=== PATIENT | female | born 1975 | race Caucasian/White ===

== ENCOUNTER 2023-05-14 14:00 | Inpatient (IN) | payer MEDICAID ==
[~2023-05-14] VITALS: Ht 167.6 cm; Wt 70.0 kg
[2023-05-14] MEDS ORDERED: ondansetron/PF 4mg/2ml inj IV ONE (15:00)
[2023-05-14] MEDS ORDERED: pantoprazole 40 MG vial IV ONE (15:00)
[2023-05-14] MEDS ORDERED: normal saline 1000ML IV soln IVB ONE (15:00)
[2023-05-14] MEDS ORDERED: acetaminophen 325mg tablet PO ONE (15:10)
[2023-05-14 15:54] LABS: HEMOGLOBIN 11.7 g/dl (12.0-16.0); RED CELL DISTRIBUTION WIDTH 12.8 % (11.5-14.5)
[2023-05-14 15:55] LABS: HEMATOCRIT 35.1 % (35.0-45.0); MEAN CORPUSCULAR HGB CONC 33.4 g/dL (33.0-36.5); MEAN CORPUSCULAR VOLUME 95.8 FL (78-98); MEAN PLATELET VOLUME 7.7 FL (7.4-10.4); PLATELET COUNT 285 X10'3 (140-440); RED BLOOD COUNT 3.66 X10'6 (4.20-5.60); WHITE BLOOD COUNT 19.5 X10'3 (4.5-11.0)
[2023-05-14 16:01] LABS: ALBUMIN 2.3 G/DL (3.4-5.0); ANION GAP 9 (8-16); BILIRUBIN,TOTAL 0.4 MG/DL (0.1-1.0); BLOOD UREA NITROGEN 7 MG/DL (7-18); BUN/CREATININE RATIO 8.4 (10.0-20.0); CALCIUM 8.3 MG/DL (8.5-10.1); CHLORIDE 99 MMOL/L (99-107); CREATININE 0.83 MG/DL (0.40-0.90); GLUCOSE 107 MG/DL (70-104); SODIUM 132 MMOL/L (135-145); TOTAL CARBON DIOXIDE 24.1 MMOL/L (24-32); eCRCL 79 ML/MIN; eGFR 74 ML/MIN
[2023-05-14 16:02] LABS: ALANINE AMINOTRANSFERASE 30 U/L (12-78); ALBUMIN/GLOBULIN RATIO 0.5 (1.1-1.5); ALKALINE PHOSPHATASE 89 IU/L (46-116); ASPARTATE AMINO TRANSFERASE 31 U/L (10-37)
[2023-05-14] MEDS ORDERED: CefTRIAXone/D5W-Rocephin 1gm 50 ML IV ONE ×2 (16:05→21:05)
[2023-05-14] MEDS ORDERED: azithromycin/NS 500mg/250ml 250 ML IV ONE (16:05)
[2023-05-14] MEDS ORDERED: magnesium Cl slow-release 64mg tablet PO PRN (16:20)
[2023-05-14] MEDS ORDERED: mag hydrox/Alum hydrox/simeth 30ml oral suspension PO PRN (16:20)
[2023-05-14] MEDS ORDERED: potassium Cl 40MEQ/1/2NS 520ml 520 ML IV PRN (16:20)
[2023-05-14] MEDS ORDERED: magnesium 4gm in 100ml NS 100 ML IV PRN (16:20)
[2023-05-14] MEDS ORDERED: potassium Cl 20 mEq SR tablet PO PRN (16:20)
[2023-05-14] MEDS ORDERED: ondansetron 4mg rapidly disintigrating tab PO PRN (16:20)
[2023-05-14] MEDS ORDERED: ondansetron/PF 4mg/2ml inj IV PRN (16:20)
[2023-05-14] MEDS ORDERED: HYDROcodone/acetaminophen 5mg/325mg tablet PO PRN (16:20)
[2023-05-14] MEDS ORDERED: magnesium hydroxide 30ml (MOM) UD suspension PO PRN (16:20)
[2023-05-14] MEDS ORDERED: acetaminophen 650mg rectal suppository RC PRN (16:20)
[2023-05-14] MEDS ORDERED: magnesium 2GM in 50ml NS 50 ML IV PRN (16:20)
[2023-05-14] MEDS ORDERED: acetaminophen 325mg tablet PO PRN ×2 (16:20)
[2023-05-14] MEDS ORDERED: bisacodyl 10mg suppository rectal RC PRN (16:20)
[2023-05-14 16:21] LABS: BILIRUBIN,URINE NEGATIVE (Neg); CLARITY,URINE SLIGHTLY CLOUDY (Clear); COLOR,URINE YELLOW (Yellow); GLUCOSE, URINE NEGATIVE (Neg); KETONES,URINE NEGATIVE (Neg); LEUKOCYTE ESTERASE ,URINE NEGATIVE (Neg); NITRITES, URINE NEGATIVE (Neg); OCCULT BLOOD,URINE TRACE-INTACT (Neg); PROTEIN,URINE NEGATIVE (Neg); UROBILINOGEN,URINE 0.2 E.U/dL (0.2-1.0)
[2023-05-14 16:38] LABS: UA COLLECTION TYPE NON-SPECIFIED
[2023-05-14 16:41] LABS: SQUAMOUS EPITHELIAL CELL,UR MANY /LPF (FEW)
[2023-05-14 16:42] LABS: MUCUS STRANDS FEW /LPF (Neg)
[2023-05-14 16:43] LABS: BACTERIA,URINE 1+ /HPF (Neg)
[2023-05-14 16:45] LABS: WBC,URINE 0-4 /HPF (0-4)
[2023-05-14 16:46] LABS: TRICHOMONAS,URINE MOD /HPF (NEGATIVE)
[2023-05-14] MEDS ORDERED: iohexol 300mg/ml 100ml inj. ONE ×2 (16:47→20:51)
[2023-05-14 17:00] LABS: PLATELET ESTIMATE NORMAL; STOMATOCYTES 1+; TOTAL CELLS COUNTED 100
[2023-05-14] MEDS: normal saline 1000ml 1,000 ML IV SCH ×2 (17:05→23:12)
[2023-05-14] MEDS ORDERED: morphine 2 MG/ML inj. syringe IV PRN (17:10)
[2023-05-14] MEDS: HYDROcodone/acetaminophen 10/325mg tab PO PRN ×2 (17:24→23:11)
[2023-05-14] MEDS ORDERED: ketorolac tromethamine 15mg/ml inj. IV PRN (18:50)
[2023-05-14] MEDS: albuterol 2.5 MG/3 ML nebule NEB SCH ×2 (20:50→23:11)
[2023-05-14 20:53] VITALS: PULSE 122; PULSE 22; O2SAT 97
[2023-05-14 21:07] LABS: ABG BASE EXCESS 0.1 mmol/L (-2.0-2.0); ABG HCO3 23.1 mmol/L (22.0-26.0); ABG OXYGEN SATURATION 94.9 % (94-97); ABG PCO2 (T) 32.9 mmHg (32.0-45.0); ABG PH (T) 7.466 (7.350-7.450); ABG PO2 (T) 71.5 mmHg (75.0-100.0); ALLEN'S TEST POSITIVE; FCOHb 0.2 % (0.0-3.9); FHHb 5.1 % (0.0-5.0); FMetHb 0.1 % (0.0-1.5); FO2Hb 94.6 % (94-97); PATIENT TEMPERATURE 37.2; TOTAL HEMOGLOBIN 12.5 G/dl (12.0-16.0)
[2023-05-14 21:09] VITALS: PULSE 110; RESP 20
[2023-05-14] MEDS: docusate sod 100mg capsule PO SCH (21:24)
[2023-05-14] MEDS: K and/or MAG REPLACEMENT MC SCH (21:25)
[2023-05-14] MEDS: enoxaparin 40mg/0.4ml syringe SQ SCH (21:25)
[2023-05-14 22:22] VITALS: BP 112/69; PULSE 115; RESP 16; TEMP 100.7; O2SAT 96
[2023-05-14 23:13] VITALS: PULSE 112; RESP 22; O2SAT 98
[2023-05-14 23:17] VITALS: PULSE 101; RESP 20
[2023-05-15] VITALS (17 sets, daily range): BP systolic 125–163; BP diastolic 71–98; PULSE 101–115; RESP 18–28; TEMP 98.1–99.2; O2SAT 90–99
[2023-05-15] MEDS: albuterol 2.5 MG/3 ML nebule NEB SCH ×6 (02:46→23:15)
[2023-05-15] MEDS: HYDROcodone/acetaminophen 10/325mg tab PO PRN ×4 (05:20→19:26)
[2023-05-15] MEDS ORDERED: NO HOME MEDS (05:29)
[2023-05-15] MEDS: CefTRIAXone 2gm/D5W 50ml BAG 50 ML IV SCH (07:45)
[2023-05-15 07:50] LABS: BASOPHILS % (AUTO) 0.2 % (0-1); EOSINOPHILS % (AUTO) 0.2 % (0-6); HEMATOCRIT 32.5 % (35.0-45.0); HEMOGLOBIN 10.8 g/dl (12.0-16.0); LYMPHOCYTES # (AUTO) 1.3 X10'3 (1.1-4.8); LYMPHOCYTES % (AUTO) 6.2 % (21-51); MEAN CORPUSCULAR HEMOGLOBIN 32.2 PG (27.0-31.0); MEAN CORPUSCULAR HGB CONC 33.2 g/dL (33.0-36.5); MONOCYTES # (AUTO) 1.3 X10'3 (0-0.9); MONOCYTES % (AUTO) 6.2 % (2-12); NEUTROPHILS % (AUTO) 87.2 % (42-75); PLATELET COUNT 276 X10'3 (140-440); RED BLOOD COUNT 3.35 X10'6 (4.20-5.60); RED CELL DISTRIBUTION WIDTH 13.2 % (11.5-14.5); WHITE BLOOD COUNT 20.7 X10'3 (4.5-11.0)
[2023-05-15 07:54] LABS: ALANINE AMINOTRANSFERASE 23 U/L (12-78); ALBUMIN 1.9 G/DL (3.4-5.0); ALBUMIN/GLOBULIN RATIO 0.4 (1.1-1.5); ALKALINE PHOSPHATASE 102 IU/L (46-116); ANION GAP 13 (8-16); ASPARTATE AMINO TRANSFERASE 17 U/L (10-37); BILIRUBIN,TOTAL 0.2 MG/DL (0.1-1.0); BLOOD UREA NITROGEN 7 MG/DL (7-18); BUN/CREATININE RATIO 7.6 (10.0-20.0); CHLORIDE 101 MMOL/L (99-107); CREATININE 0.92 MG/DL (0.40-0.90); GLUCOSE 113 MG/DL (70-104); MAGNESIUM 1.6 MG/DL (1.5-2.4); POTASSIUM 3.4 MMOL/L (3.5-5.1); SODIUM 136 MMOL/L (135-145); TOTAL CARBON DIOXIDE 22.2 MMOL/L (24-32); TOTAL PROTEIN 6.5 G/DL (6.4-8.2); eCRCL 72 ML/MIN; eGFR 66 ML/MIN
[2023-05-15] MEDS: docusate sod 100mg capsule PO SCH ×2 (08:00→19:26)
[2023-05-15] MEDS ORDERED: CefTRIAXone/D5W-Rocephin 1gm 50 ML IV SCH (08:00)
[2023-05-15] MEDS: K and/or MAG REPLACEMENT MC SCH ×2 (08:00→20:00)
[2023-05-15] MEDS: azithromycin/NS 500mg/250ml 250 ML IV SCH (08:58)
[2023-05-15] MEDS: normal saline 1000ml 1,000 ML IV SCH (09:05)
[2023-05-15] MEDS: potassium Cl 20 mEq SR tablet PO PRN ×3 (10:50→21:50)
[2023-05-15 18:51] LABS: URINE AMPHETAMINE SCREEN POSITIVE (Neg); URINE BARBITUATE SCREEN NEGATIVE (Neg); URINE BENZODIAZEPINES SCREEN NEGATIVE (Neg); URINE CANNABINOID SCREEN POSITIVE (Neg); URINE COCAINE SCREEN NEGATIVE (Neg); URINE METHADONE SCREEN NEGATIVE (Neg); URINE OPIATE SCREEN POSITIVE (Neg); URINE PHENCYCLIDINE SCREEN NEGATIVE (Neg)
[2023-05-15] MEDS: enoxaparin 40mg/0.4ml syringe SQ SCH (19:26)
[2023-05-16] MEDS: HYDROcodone/acetaminophen 10/325mg tab PO PRN ×2 (03:02→07:34)
[2023-05-16] MEDS: albuterol 2.5 MG/3 ML nebule NEB SCH ×2 (03:07→07:38)
[2023-05-16 03:08] VITALS: PULSE 108; RESP 18; O2SAT 93
[2023-05-16 03:13] VITALS: PULSE 100; RESP 18
[2023-05-16] MEDS: normal saline 1000ml 1,000 ML IV SCH (04:36)
[2023-05-16 06:00] VITALS: BP 152/91; PULSE 94; RESP 19; TEMP 98.4; O2SAT 97
[2023-05-16 06:09] LABS: BASOPHILS % (AUTO) 0.3 % (0-1); EOSINOPHILS # (AUTO) 0.2 X10'3 (0-0.9); EOSINOPHILS % (AUTO) 1.2 % (0-6); HEMATOCRIT 33.6 % (35.0-45.0); HEMOGLOBIN 11.2 g/dl (12.0-16.0); LYMPHOCYTES # (AUTO) 1.7 X10'3 (1.1-4.8); LYMPHOCYTES % (AUTO) 12.2 % (21-51); MEAN CORPUSCULAR HEMOGLOBIN 32.3 PG (27.0-31.0); MEAN CORPUSCULAR HGB CONC 33.4 g/dL (33.0-36.5); MEAN CORPUSCULAR VOLUME 96.6 FL (78-98); MEAN PLATELET VOLUME 7.5 FL (7.4-10.4); MONOCYTES % (AUTO) 7.3 % (2-12); NEUTROPHILS # (AUTO) 10.7 X10'3 (1.8-7.7); PLATELET COUNT 317 X10'3 (140-440); RED BLOOD COUNT 3.47 X10'6 (4.20-5.60); RED CELL DISTRIBUTION WIDTH 13.3 % (11.5-14.5); WHITE BLOOD COUNT 13.6 X10'3 (4.5-11.0)
[2023-05-16 06:17] LABS: ALANINE AMINOTRANSFERASE 26 U/L (12-78); ALBUMIN 1.9 G/DL (3.4-5.0); ALBUMIN/GLOBULIN RATIO 0.4 (1.1-1.5); ALKALINE PHOSPHATASE 106 IU/L (46-116); ANION GAP 7 (8-16); ASPARTATE AMINO TRANSFERASE 18 U/L (10-37); BILIRUBIN,TOTAL 0.2 MG/DL (0.1-1.0); BLOOD UREA NITROGEN 7 MG/DL (7-18); BUN/CREATININE RATIO 10.4 (10.0-20.0); CALCIUM 8.4 MG/DL (8.5-10.1); CHLORIDE 104 MMOL/L (99-107); CREATININE 0.67 MG/DL (0.40-0.90); GLUCOSE 99 MG/DL (70-104); MAGNESIUM 1.8 MG/DL (1.5-2.4); POTASSIUM 3.6 MMOL/L (3.5-5.1); SODIUM 136 MMOL/L (135-145); TOTAL CARBON DIOXIDE 25.3 MMOL/L (24-32); TOTAL PROTEIN 6.9 G/DL (6.4-8.2); eCRCL 98 ML/MIN; eGFR > 90 ML/MIN
[2023-05-16] MEDS: azithromycin/NS 500mg/250ml 250 ML IV SCH (07:34)
[2023-05-16] MEDS: CefTRIAXone 2gm/D5W 50ml BAG 50 ML IV SCH (07:34)
[2023-05-16 07:38] VITALS: PULSE 96; RESP 17; O2SAT 97
[2023-05-16 07:44] VITALS: PULSE 98; RESP 17
[2023-05-16 07:59] VITALS: RESP 16; O2SAT 94
[2023-05-16] MEDS: docusate sod 100mg capsule PO SCH (08:00)
[2023-05-16] MEDS: K and/or MAG REPLACEMENT MC SCH (08:00)
[2023-05-16] MEDS ORDERED: AMOX-580 PO (10:08)
[2023-05-16] MEDS ORDERED: AZIT500T9 PO (10:08)
== END 2023-05-16 11:45 | disposition home or self-care (01) | DRG 720 ==
LOC: ER 14:01 → ED HOLD 16:26 → ORTHO 4S 22:14
PROVIDERS: ADMIT Family Medicine; ATTEND Family Medicine
DX: A41.9 Sepsis, unspecified organism (principal); J96.90 Respiratory failure, unspecified, unspecified whether with hypoxia or hypercapnia; E87.1 Hypo-osmolality and hyponatremia; J18.9 Pneumonia, unspecified organism; E87.6 Hypokalemia; F17.210 Nicotine dependence, cigarettes, uncomplicated; F15.90 Other stimulant use, unspecified, uncomplicated; Z20.822 Contact with and (suspected) exposure to COVID-19; Z88.5 Allergy status to narcotic agent
CPT/HCPCS: 36415; 36600; 71045; 71260; 80053; 80305; 81001; 82803; 83605; 83735; 84484; 85007; 85018; 85025; 87040; 87070; 87081; 87502; 87503; 87811; 94640; 94760; 99285; A4615; A6258; C9113; G0378; J0456; J0696; J1650; J2270; J2405; J3490; J7030; Q9967